=== PATIENT | female | born 1990 | race Caucasian/White ===

== ENCOUNTER → 2017-09-08 | Outpatient (CLI) | payer OTHER ==
[~2017-09-08] VITALS: Ht 167.6 cm; Wt 142.0 kg
[~2017-09-08] MED LIST: PRENATAL TABLE1 EAC3 PO
[2017-09-08 14:31] VITALS: BP 121/65
== END | disposition home or self-care (01) ==
LOC: IVINF 13:59
DX: Z31.82 Encounter for Rh incompatibility status (principal); Z3A.28 28 weeks gestation of pregnancy; Z67.11 Type A blood, Rh negative
CPT/HCPCS: 96372; J2790

== ENCOUNTER 2017-10-07 11:45 | Outpatient (CLI) | payer OTHER ==
[2017-10-07 12:15] VITALS: BP 116/64
[2017-10-07] MEDS ORDERED: HUMULIN N100 UNITS/ SC (12:25)
[2017-10-07] MEDS ORDERED: HUMALOG100 UNIT/1 SC (12:25)
== END 2017-10-07 12:44 | disposition home or self-care (01) ==
LOC: LDRP-OP 11:45 → 2WEST 11:46
DX: O36.8130 Decreased fetal movements, third trimester, not applicable or unspecified (principal); O24.414 Gestational diabetes mellitus in pregnancy, insulin controlled; O99.213 Obesity complicating pregnancy, third trimester; E66.9 Obesity, unspecified; Z68.42 Body mass index [BMI] 45.0-49.9, adult; Z3A.32 32 weeks gestation of pregnancy; Z87.891 Personal history of nicotine dependence
CPT/HCPCS: 59025; G0378

== ENCOUNTER 2017-11-06 13:59 | Outpatient (CLI) | payer OTHER ==
[~2017-11-06] VITALS: Ht 167.6 cm; Wt 145.5 kg
[~2017-11-06 13:59] MED LIST changes: +HUMALOG100 UNIT/1 SC; +HUMULIN N100 UNITS/ SC
[2017-11-06 15:03] VITALS: BP 110/70
[2017-11-06 15:10] LABS: BASOPHIL (%) 0.2 % (0-1); EOSINOPHIL (%) 0.7 % (0-5); EOSINOPHIL COUNT 0.1 K/uL (0-0.3); HEMATOCRIT 34.1 % (36.0-46.0); HEMOGLOBIN 11.2 G/DL (11.9-15.5); IMMATURE GRANULOCYTE (%) 0.9 % (0.0-0.7); LYMPHOCYTE (%) 13.9 % (15-42); LYMPHOCYTE COUNT 1.8 K/uL (1.0-2.8); MCH 26.4 PG (29.0-34.0); MCHC 32.8 G/DL (30.0-36.0); MCV 80.4 FL (83-99); MONOCYTE (%) 6.1 % (3-12); MONOCYTE COUNT 0.8 K/uL (0-0.8); NEUTROPHIL (%) 78.2 % (45-76); NEUTROPHIL COUNT 9.9 K/uL (1.8-6.4); PLATELET COUNT 218 K/uL (156-360); RBC DIS.WIDTH-CV 14.5 % (11.8-14.6); RBC DIS.WIDTH-SD 42.1 % (39-53); RED BLOOD COUNT 4.24 M/uL (3.80-5.20); WHITE BLOOD COUNT 12.7 K/uL (4.1-10.2)
[2017-11-06 15:38] LABS: ALKALINE PHOSPHATASE 123 IU/L (3-129); ALT (GPT) 8 IU/L (3-49); AST (GOT) 10 IU/L (2-34); CHLORIDE 108 MEQ/L (99-109); CREATININE 0.6 MG/DL (0.6-1.3); GFR ESTIMATE (CALCULATED) > 59 mL/min/; GLUCOSE 82 mg/dL (70-99); POTASSIUM 4.2 MEQ/L (3.7-5.4); SODIUM 135 MEQ/L (136-147); TOTAL BILIRUBIN 0.2 MG/DL (0.0-1.0); TOTAL PROTEIN 5.9 G/DL (6.4-8.3); UREA NITROGEN (BUN) 7 mg/dL (9-23)
[2017-11-06 15:50] VITALS: BP 121/76
[2017-11-06 15:55] LABS: UR CREATININE CONCENTRATION 63.5 MG/DL
== END 2017-11-06 16:50 | disposition home or self-care (01) ==
LOC: LDRP-OP 13:59 → 2WEST 14:00 → LDRP-OP 12-30 13:04
PROVIDERS: Obstetrics & Gynecology Obstetrics
DX: O26.893 Other specified pregnancy related conditions, third trimester (principal); R03.0 Elevated blood-pressure reading, without diagnosis of hypertension; G43.909 Migraine, unspecified, not intractable, without status migrainosus; O24.414 Gestational diabetes mellitus in pregnancy, insulin controlled; O99.213 Obesity complicating pregnancy, third trimester; E66.01 Morbid (severe) obesity due to excess calories; Z3A.36 36 weeks gestation of pregnancy
CPT/HCPCS: 59025; 80053; 82570; 84156; 85025; G0378

== ENCOUNTER 2017-11-22 10:06 | Inpatient (IN) | payer OTHER ==
[~2017-11-22] VITALS: Ht 167.6 cm; Wt 154.5 kg
[2017-11-22] VITALS (10 sets, daily range): BP systolic 118–141; BP diastolic 62–81
[2017-11-22] MEDS ORDERED: HUMALOG100 UNIT/1 SC (11:05)
[2017-11-22] MEDS ORDERED: HUMULIN N100 UNITS/ SC ×2 (11:07→11:08)
[2017-11-22] MEDS ORDERED: TUMS500 MG PO (11:09)
[2017-11-22 12:43] LABS: BASOPHIL (%) 0.3 % (0-1); EOSINOPHIL (%) 0.5 % (0-5); EOSINOPHIL COUNT 0.1 K/uL (0-0.3); HEMATOCRIT 34.7 % (36.0-46.0); HEMOGLOBIN 11.2 G/DL (11.9-15.5); IMMATURE GRANULOCYTE (%) 1.5 % (0.0-0.7); LYMPHOCYTE (%) 13.2 % (15-42); LYMPHOCYTE COUNT 1.8 K/uL (1.0-2.8); MCH 25.7 PG (29.0-34.0); MCHC 32.3 G/DL (30.0-36.0); MCV 79.8 FL (83-99); MONOCYTE (%) 4.4 % (3-12); MONOCYTE COUNT 0.6 K/uL (0-0.8); NEUTROPHIL (%) 80.1 % (45-76); NEUTROPHIL COUNT 10.8 K/uL (1.8-6.4); PLATELET COUNT 211 K/uL (156-360); RBC DIS.WIDTH-CV 14.7 % (11.8-14.6); RBC DIS.WIDTH-SD 42.6 % (39-53); RED BLOOD COUNT 4.35 M/uL (3.80-5.20); WHITE BLOOD COUNT 13.5 K/uL (4.1-10.2)
[2017-11-23] VITALS (16 sets, daily range): BP systolic 125–157; BP diastolic 58–84
[2017-11-23 11:12] LABS: BENZODIAZEPINES, URINE SCREEN Negative (200 ng/mL)
[2017-11-24] VITALS (26 sets, daily range): BP systolic 119–142; BP diastolic 60–89
[2017-11-24 22:45] LABS: BASOPHIL (%) 0.2 % (0-1); EOSINOPHIL (%) 0.7 % (0-5); EOSINOPHIL COUNT 0.1 K/uL (0-0.3); HEMATOCRIT 34.4 % (36.0-46.0); HEMOGLOBIN 11.2 G/DL (11.9-15.5); LYMPHOCYTE (%) 15.7 % (15-42); MCH 25.7 PG (29.0-34.0); MCHC 32.6 G/DL (30.0-36.0); MCV 79.1 FL (83-99); MONOCYTE COUNT 0.8 K/uL (0-0.8); NEUTROPHIL (%) 76.4 % (45-76); NEUTROPHIL COUNT 9.5 K/uL (1.8-6.4); PLATELET COUNT 230 K/uL (156-360); RBC DIS.WIDTH-SD 42.7 % (39-53); RED BLOOD COUNT 4.35 M/uL (3.80-5.20); WHITE BLOOD COUNT 12.5 K/uL (4.1-10.2)
[2017-11-24 22:54] LABS: ALBUMIN 3.1 g/dL (3.2-4.8); CHLORIDE 109 mEq/L (99-109); POTASSIUM 4.4 mEq/L (3.7-5.4); SODIUM 137 mEq/L (136-147)
[2017-11-24 22:56] LABS: GLUCOSE 86 mg/dL (70-99); TOTAL PROTEIN 5.9 g/dL (6.4-8.3)
[2017-11-24 22:58] LABS: TOTAL BILIRUBIN 0.4 mg/dL (0.0-1.0)
[2017-11-24 23:00] LABS: ALKALINE PHOSPHATASE 187 IU/L (3-129); CREATININE 0.8 mg/dL (0.6-1.3); GFR ESTIMATE (CALCULATED) > 59 mL/min/
[2017-11-24 23:01] LABS: AST (GOT) 13 IU/L (2-34); UREA NITROGEN (BUN) 12 mg/dL (9-23)
[2017-11-24 23:03] LABS: ALT (GPT) 8 IU/L (3-49)
[2017-11-24 23:18] LABS: UR CREATININE CONCENTRATION 71.1 MG/DL
[2017-11-25] VITALS (33 sets, daily range): BP systolic 110–177; BP diastolic 56–94
[2017-11-25 07:12] LABS: HEMATOCRIT 34.6 % (36.0-46.0); HEMOGLOBIN 11.3 G/DL (11.9-15.5); MCH 25.9 PG (29.0-34.0); MCHC 32.7 G/DL (30.0-36.0); MCV 79.2 FL (83-99); PLATELET COUNT 223 K/uL (156-360); RBC DIS.WIDTH-SD 43.2 % (39-53); RED BLOOD COUNT 4.37 M/uL (3.80-5.20); WHITE BLOOD COUNT 12.1 K/uL (4.1-10.2)
[2017-11-25 07:43] LABS: ALKALINE PHOSPHATASE 165 IU/L (3-129); ALT (GPT) 7 IU/L (3-49); AST (GOT) 12 IU/L (2-34); CHLORIDE 107 MEQ/L (99-109); CREATININE 0.8 MG/DL (0.6-1.3); GFR ESTIMATE (CALCULATED) > 59 mL/min/; GLUCOSE 94 mg/dL (70-99); POTASSIUM 4.5 MEQ/L (3.7-5.4); SODIUM 138 MEQ/L (136-147); TOTAL BILIRUBIN 0.4 MG/DL (0.0-1.0); UREA NITROGEN (BUN) 12 mg/dL (9-23)
[2017-11-26 07:32] LABS: BASOPHIL (%) 0.2 % (0-1); EOSINOPHIL (%) 0.3 % (0-5); HEMATOCRIT 30.8 % (36.0-46.0); HEMOGLOBIN 9.7 G/DL (11.9-15.5); LYMPHOCYTE (%) 13.2 % (15-42); LYMPHOCYTE COUNT 1.8 K/uL (1.0-2.8); MCH 25.6 PG (29.0-34.0); MCHC 31.5 G/DL (30.0-36.0); MCV 81.3 FL (83-99); MONOCYTE (%) 6.6 % (3-12); MONOCYTE COUNT 0.9 K/uL (0-0.8); NEUTROPHIL (%) 78.7 % (45-76); NEUTROPHIL COUNT 10.7 K/uL (1.8-6.4); PLATELET COUNT 195 K/uL (156-360); RBC DIS.WIDTH-CV 15.4 % (11.8-14.6); RBC DIS.WIDTH-SD 44.2 % (39-53); RED BLOOD COUNT 3.79 M/uL (3.80-5.20); WHITE BLOOD COUNT 13.5 K/uL (4.1-10.2)
[2017-11-26 08:00] VITALS: BP 125/81
[2017-11-26 12:21] VITALS: BP 140/72
[2017-11-26 15:18] VITALS: BP 128/74
[2017-11-26 19:31] VITALS: BP 142/82
[2017-11-26 22:39] VITALS: BP 133/69
[2017-11-27 02:00] VITALS: BP 135/70
[2017-11-27 23:45] VITALS: BP 143/76
[2017-11-28 07:27] VITALS: BP 125/60
[2017-11-28] MEDS ORDERED: PERCOCET 5/31 TABLET PO (13:21)
[2017-11-28] MEDS ORDERED: MOTRIN800 MG PO (13:21)
== END 2017-11-28 14:05 | disposition home or self-care (01) | DRG 765 ==
LOC: LDRP-OP 10:06 → 2WEST 10:07 → LDRP-OP 13:57 → 2WEST 11-25 18:01 → LDRP-OP 12-30 19:23
PROVIDERS: Nurse Practitioner; Obstetrics & Gynecology; Obstetrics & Gynecology Obstetrics
PROC: 3E033VJ Introduction of Other Hormone into Peripheral Vein, Percutaneous Approach (ICD-10-PCS; principal; 2017-11-22)
PROC: 3E0P7VZ Introduction of Hormone into Female Reproductive, Via Natural or Artificial Opening (ICD-10-PCS; principal; 2017-11-22)
PROC: 10907ZC Drainage of Amniotic Fluid, Therapeutic from Products of Conception, Via Natural or Artificial Opening (ICD-10-PCS; principal; 2017-11-22)
PROC: 0U7C7ZZ Dilation of Cervix, Via Natural or Artificial Opening (ICD-10-PCS; principal; 2017-11-22)
PROC: 00HU33Z Insertion of Infusion Device into Spinal Canal, Percutaneous Approach (ICD-10-PCS; 2017-11-25)
PROC: 10D00Z1 Extraction of Products of Conception, Low, Open Approach (ICD-10-PCS; 2017-11-25)
PROC: 3E0R3BZ Introduction of Anesthetic Agent into Spinal Canal, Percutaneous Approach (ICD-10-PCS; 2017-11-25)
DX: O62.0 Primary inadequate contractions (principal); O65.9 Obstructed labor due to maternal pelvic abnormality, unspecified; O69.81X0 Labor and delivery complicated by cord around neck, without compression, not applicable or unspecified; O99.824 Streptococcus B carrier state complicating childbirth; Z3A.39 39 weeks gestation of pregnancy; Z37.0 Single live birth; O40.3XX0 Polyhydramnios, third trimester, not applicable or unspecified; O24.424 Gestational diabetes mellitus in childbirth, insulin controlled; O99.214 Obesity complicating childbirth; E66.01 Morbid (severe) obesity due to excess calories; Z68.42 Body mass index [BMI] 45.0-49.9, adult; O14.04 Mild to moderate pre-eclampsia, complicating childbirth; O26.03 Excessive weight gain in pregnancy, third trimester; Z82.49 Family history of ischemic heart disease and other diseases of the circulatory system; Z83.3 Family history of diabetes mellitus
CPT/HCPCS: 80053; 80306 90; 82247; 82248; 82261 90; 82570; 82776 90; 82948; 84030 90; 84156; 84510 90; 85025; 85027; 86850; 86900; 86901; 93005; C1755; G0378; J0456; J0595; J0690; J1200; J1815; J2400; J2540; J2795; J3010; J7120